=== PATIENT | female | born 1990 | race Hispanic/Latino ===

== ENCOUNTER 2018-01-24 13:40 | Emergency (ER) | payer OTHER ==
[2018-01-24 13:40] VITALS: BMI 28.3
[2018-01-24 13:53] VITALS: TEMP 98.1; O2SAT 100
[2018-01-24] MEDS ORDERED: Sodium Chloride 0.9% 1,000 ML IV ONE (14:40)
--- NOTE | 2018-01-24 14:40 | ED PDOC ---
HPI: Female Pain Time Seen by Provider: 01/24/18 14:04 Chief Complaint (Nursing): Female Genitourinary History Per: Patient History/Exam Limitations: no limitations Onset/Duration Of Symptoms: Days (1), Gradual Current Symptoms Are (Timing): Still Present Severity: Mild Quality Of Discomfort: Dull, Aching Associated Symptoms: Back Pain. denies: Fever, Chills, Nausea, Vomiting, Chest Pain, Constipation, Urinary Symptoms Alleviating Factors: None Additional History Per: Patient Additional Complaint(s): Patient complaints of abdominal pain and back pain associated with vaginal bleeding. 4 michael pads used today. Abnormal Vaginal Bleeding: Yes Past Medical History Reviewed: Historical Data, Nursing Documentation, Vital Signs Vital Signs: Last Vital Signs Temp 98.1 F 01/24/18 13:49 Pulse 85 01/24/18 13:49 Resp 16 01/24/18 13:49 BP 97/67 L 01/24/18 13:49 Pulse Ox 100 01/24/18 13:49 - Medical History PMH: Denies: Chronic Kidney Disease - Family History Family History: States: Unknown Family Hx - Living Arrangements Living Arrangements: With Family - Social History Current smoker - smoking cessation education provided: No - Home Medications Home Medications: Ambulatory Orders Medication Instructions Recorded Ibuprofen [Motrin Tab] 600 mg PO Q6 PRN #40 tab 10/22/16 Multimineral/Multivitamin 1 tab PO DAILY tab 10/22/16 [Therapeutic-M Tab] Multivit/Folic Acid/I 1 tab PO DAILY #30 tab 01/24/18 [ Plus] - Allergies Allergies/Adverse Reactions: Allergies Allergy/AdvReac Type Severity Reaction Status Date / Time peanut Allergy RASH Verified 10/19/16 23:27 Penicillins Allergy RASH Verified 10/19/16 23:27 Review of Systems ROS Statement: Except As Marked, All Systems Reviewed And Found Negative Constitutional: Negative for: Fever, Chills Cardiovascular: Negative for: Chest Pain, Palpitations Respiratory: Negative for: Cough, Shortness of Breath Gastrointestinal: Negative for: Nausea, Vomiting, Abdominal Pain, Diarrhea Genitourinary Female: Positive for: Vaginal Bleeding, Pelvic Pain. Negative for : Dysuria, Frequency, Vaginal Discharge Neurological: Negative for: Weakness, Numbness Physical Exam - Reviewed Nursing Documentation Reviewed: Yes Vital Signs Reviewed: Yes - Physical Exam Appears: Positive for: Uncomfortable Head Exam: Positive for: ATRAUMATIC, NORMAL INSPECTION, NORMOCEPHALIC Eye Exam: Positive for: Normal appearance Neck: Positive for: Normal, Painless ROM, Supple Cardiovascular/Chest: Positive for: Regular Rate, Rhythm, Chest Non Tender. Negative for: Edema, Gallop Respiratory: Positive for: Normal Breath Sounds. Negative for: Decreased Breath Sounds, Accessory Muscle Use, Crackles, Rales, Rhonchi, Stridor, Wheezing Gastrointestinal/Abdominal: Positive for: Normal Exam, Bowel Sounds, Soft. Negative for: Tenderness Pelvic Exam: Positive for: External Exam Normal, Bimanual Exam Normal, No Cerv. Motion Tender, No Masses, Blood (min). Negative for: Tender Adnexa, Tender Uterus Back: Positive for: Normal Inspection. Negative for: L CVA Tenderness, R CVA Tenderness, Vertebral Tenderness Extremity: Positive for: Normal ROM. Negative for: Tenderness, Pedal Edema Neurologic/Psych: Positive for: Alert, grinding machine operator automatic II-XII, Oriented, Mood/Affect (calm) . Negative for: Motor/Sensory Deficits - Laboratory Results Result Diagrams: 01/24/18 15:01 01/24/18 15:01 - ECG O2 Sat by Pulse Oximetry: 100 Pulse Ox Interpretation: Normal - Progress ED Course And Treament: us reveals 8week old fetus. advise close f/u with od. pt agree's with plan and leaves ambulatory and in good spirits. Re-evaluation Time: 16:06 Condition: Improved Disposition - Clinical Impression Clinical Impression: Miscarriage, threatened, early - Patient ED Disposition Is Patient to be Admitted: No Counseled Patient/Family Regarding: Studies Performed, Diagnosis, Need For Followup, Rx Given - Disposition [facility] (2 to 3 days) Disposition: Routine/Home Disposition Time: 15:30 Condition: GOOD Prescriptions: Multivit/Folic Acid/I [ Plus] 1 tab PO DAILY #30 tab Instructions: Threatened Miscarriage (DC) Forms: [facility] [employer] (Grenadian) Print Language: SLOVAK
[2018-01-24 15:06] LABS: BASO # 0.1 K/uL (0.0-0.2); EOS # 0.1 K/uL (0.0-0.7); HEMOGLOBIN 14.2 g/dL (12.0-16.0); LYMPH # 3.2 K/uL (1.0-4.3); LYMPH % 32.7 % (20.0-40.0); MEAN CELL VOLUME 92.2 fl (81.0-99.0); MEAN CORPUSCULAR HEMOGLOBIN 31.8 pg (27.0-31.0); MEAN CORPUSCULAR HGB CONC 34.5 g/dL (33.0-37.0); MEAN PLATELET VOLUME 10.8 fl (7.2-11.7); MONO # 0.7 K/uL (0.0-0.8); MONO % 7.1 % (0.0-10.0); NEUT # 5.7 K/uL (1.8-7.0); NEUT % 58.2 % (50.0-75.0); NRBC % 0.3 % (0.0-0.0); RBC 4.45 Mil/uL (3.80-5.20); RED CELL DISTRIBUTION WIDTH 12.9 % (11.5-14.5); WHITE BLOOD COUNT 9.8 K/uL (4.8-10.8)
[2018-01-24 15:15] LABS: ALB/GLOB RATIO 1.2 (1.0-2.1); ALBUMIN 3.9 g/dL (3.5-5.0); ALT/SGPT 84 U/L (9-52); AMYLASE 98 U/L (30-110); AST/SGOT 41 U/L (14-36); BLOOD UREA NITROGEN 8 mg/dl (7-17); CALCIUM 9.3 mg/dL (8.4-10.2); GFR AFRICAN-AMERICAN > 60; GFR NON-AFRICAN AMERICAN > 60; LIPASE 121 U/L (23-300)
[2018-01-24 15:15] LABS: SQUAMOUS EPITHIAL 5 /hpf (0-5); URINE AMORPHOUS SEDIMENT OCC /ul (<OCC); URINE BACTERIA RARE (<OCC); URINE BILIRUBIN NEGATIVE (NEGATIVE); URINE BLOOD SMALL (NEGATIVE); URINE CLARITY TURBID (Clear); URINE COLOR YELLOW (YELLOW); URINE GLUCOSE (UA) NEG (Normal); URINE LEUKOCYTE ESTERASE TRACE Leu/uL (Negative); URINE PROTEIN NEGATIVE (NEGATIVE); URINE UROBILINOGEN 0.2-1.0 mg/dL (0.2-1.0)
--- NOTE | 2018-01-24 15:33 | US ---
PROCEDURE: OB Pelvic Ultrasound HISTORY: pelvic pain r/o ectopic LMP: 11/23/2017 COMPARISON: No relevant prior imaging. FINDINGS: UTERUS: Gestational sac: Single intrauterine gestation. Measures 2.9 cm compatible with estimated gestational age of 7 weeks, 6 days. Yolk sac: Measures 0.6 cm. pole: [place]-rump length measures 1.6 cm compatible with estimated gestational age of 8 weeks, 0 days. Heart rate: 163 bpm. age (Ultrasound estimated): 8 weeks, 0 days [place]-gestational hemorrhage: Small subchorionic hemorrhage measuring 1.7 x 0.6 x 0.9 cm. Date of delivery (Ultrasound estimated) : 09/05/2018 Uterus measures 9.7 x 6.0 x 5.4 cm. Anteverted. Normal in size and appearance. CERVIX: Measures 4.6 cm. Long and closed. No cervical abnormality seen. RIGHT OVARY: Measures 3.5 x 3.2 x 2.4 cm. Cyst measuring 2.4 x 1.9 x 1.9 cm. Normal flow. LEFT OVARY: Measures 2.5 x 1.4 x 2.1 cm. No solid mass. Normal flow. FREE FLUID: None. OTHER FINDINGS: None. IMPRESSION: Single viable intrauterine gestation with average ultrasound age of 8 weeks, 0 days. heart rate 163 beats per minute. Cervix long and closed. Small subchorionic hemorrhage.
[2018-01-24 16:51] VITALS: BP 110/70; PULSE 79; RESP 18
== END 2018-01-24 16:41 | disposition home or self-care (01) ==
LOC: H.ER 13:40
DX: O20.0 Threatened abortion (principal); Z88.0 Allergy status to penicillin

== ENCOUNTER 2018-09-22 21:31 | Emergency (ER) | payer SELFPAY ==
[2018-09-22 21:32] VITALS: BMI 28.3
[2018-09-22 22:04] VITALS: TEMP 98.2
--- NOTE | 2018-09-22 23:08 | ED PDOC ---
HPI: Headache Time Seen by Provider: 09/22/18 22:19 Chief Complaint (Nursing): Weakness/Neurological Deficit Chief Complaint (Provider): WALKER and Right sided facial numbness History Per: Patient History/Exam Limitations: no limitations Onset/Duration Of Symptoms: Days Quality: Sharp Preceeding Symptoms: denies: Visual Disturbances Associated Symptoms: Nausea. denies: Photophobia, Vomiting Additional Complaint(s): 28 y/o F with hx of HL, Migraines, [place]'s Palsy age 18 who presents with Right sided WALKER x 3 days and facial numbness that began today. Denies dizziness, visual disturbance, gait disturbance, N/V, weakness. She states that her [place]'s Palsy began with Right sided facial numbness and began with a stressor. She has been under a lot of stress as her was arrested by immigration recently. She has not taken anything for the WALKER. The WALKER has been intermittent for the past 3 days. Past Medical History Reviewed: Historical Data, Nursing Documentation, Vital Signs Vital Signs: Last Vital Signs Temp 98.2 F 09/22/18 22:03 Pulse 75 09/22/18 22:03 Resp 16 09/22/18 22:03 BP 129/87 09/22/18 22:03 Pulse Ox 98 09/22/18 22:03 - Medical History PMH: Hyperlipidemia, Migraine Denies: Chronic Kidney Disease Other PMH: fatty liver - Family History Family History: States: Unknown Family Hx - Social History Current smoker - smoking cessation education provided: No Ex-Smoker (has not smoked in the last 12 months): No Alcohol: None Drugs: Denies - Home Medications Home Medications: Ambulatory Orders Medication Instructions Recorded Ibuprofen [Motrin Tab] 600 mg PO Q6 PRN #40 tab 10/22/16 Multimineral/Multivitamin 1 tab PO DAILY tab 10/22/16 [Therapeutic-M Tab] Multivit/Folic Acid/I 1 tab PO DAILY #30 tab 01/24/18 [ Plus] Cyclobenzaprine [Cyclobenzaprine 10 mg PO Q8 PRN 5 Days tab 09/23/18 HCl] Ibuprofen [Motrin Tab] 600 mg PO Q6 PRN 5 Days tab 09/23/18 - Allergies Allergies/Adverse Reactions: Allergies Allergy/AdvReac Type Severity Reaction Status Date / Time peanut Allergy RASH Verified 10/19/16 23:27 Penicillins Allergy RASH Verified 10/19/16 23:27 Review of Systems ROS Statement: Except As Marked, All Systems Reviewed And Found Negative Constitutional: Negative for: Fever, Chills Cardiovascular: Negative for: Chest Pain Respiratory: Negative for: Cough, Shortness of Breath Gastrointestinal: Negative for: Nausea, Vomiting Musculoskeletal: Positive for: Neck Pain (Right neck pain) Neurological: Positive for: Numbness (Right sided facial numbness), Headache (Right sided WALKER). Negative for: Incoordination, Change in Speech, Confusion, Altered Mental Status, Dizziness Physical Exam - Reviewed Nursing Documentation Reviewed: Yes Vital Signs Reviewed: Yes - Physical Exam Appears: Positive for: Uncomfortable Head Exam: Positive for: ATRAUMATIC Skin: Positive for: Normal Color Eye Exam: Positive for: EOMI, PERRL ENT: Positive for: Normal ENT Inspection Neck: Positive for: Decreased ROM (with RIght lateral rotation of neck) Cardiovascular/Chest: Positive for: Regular Rate, Rhythm Respiratory: Positive for: Normal Breath Sounds Extremity: Positive for: Normal ROM Neurologic/Psych: Positive for: Alert, Oriented, Motor/Sensory Deficits (decreased sensation on Right cheek), Other (normal proprioception, able to puff cheeks, smile symmetrical). Negative for: Facial Droop - Laboratory Results Result Diagrams: 09/22/18 23:25 09/22/18 23:25 - ECG O2 Sat by Pulse Oximetry: 98 Medical Decision Making Medical Decision Making: CBC, CMP Reglan 10mg IV Toradol 30mg IV Flexeril 10mg PO x 1 Urine preg Urine preg: neg LFTs elevated. Re-evaluated prior to d/c: patient states that her neck pain and WALKER are significantly improved but that she continues to have facial numbness. Given improvement in WALKER and lack of neurological deficits, further imaging was deferred. Patient given return instructions in case symptoms persist or worsen and was in agreement with the plan. Disposition - Clinical Impression Clinical Impression: Tension headache - Patient ED Disposition Is Patient to be Admitted: No Counseled Patient/Family Regarding: Studies Performed, Diagnosis, Need For Followup, Rx Given - Disposition Disposition: Routine/Home Disposition Time: 02:48 Condition: STABLE Additional Instructions: Return to ER if you develop worsening Headache, visual changes, nausea/vomiting, weakness on one side of your body. F/u with your primary care doctor at [facility] or neurologist for management of headache/migraine. Prescriptions: Cyclobenzaprine [Cyclobenzaprine HCl] 10 mg PO Q8 PRN 5 Days tab PRN Reason: Pain, Moderate (4-7) Ibuprofen [Motrin Tab] 600 mg PO Q6 PRN 5 Days tab PRN Reason: Headache Instructions: Tension Headache (DC) Forms: [facility] (Chadian) Print Language: SWEDISH
[2018-09-22] MEDS ORDERED: Sodium Chloride 0.9% 1,000 ML IV SCH (23:15)
[2018-09-22 23:35] LABS: BASO # 0.1 K/uL (0.0-0.2); BASO % 1.5 % (0.0-2.0); EOS # 0.1 K/uL (0.0-0.7); EOS % 0.8 % (0.0-4.0); HEMOGLOBIN 14.2 g/dL (12.0-16.0); LYMPH # 5.1 K/uL (1.0-4.3); LYMPH % 49.7 % (20.0-40.0); MEAN CELL VOLUME 92.2 fl (81.0-99.0); MEAN CORPUSCULAR HEMOGLOBIN 30.7 pg (27.0-31.0); MEAN CORPUSCULAR HGB CONC 33.3 g/dL (33.0-37.0); MEAN PLATELET VOLUME 11.7 fl (7.2-11.7); MONO # 0.6 K/uL (0.0-0.8); MONO % 5.6 % (0.0-10.0); NEUT # 4.4 K/uL (1.8-7.0); NEUT % 42.4 % (50.0-75.0); NRBC % 0.1 % (0.0-0.0); RBC 4.63 Mil/uL (3.80-5.20); RED CELL DISTRIBUTION WIDTH 12.5 % (11.5-14.5); WHITE BLOOD COUNT 10.3 K/uL (4.8-10.8)
[2018-09-22 23:43] LABS: ALB/GLOB RATIO 1.3 (1.0-2.1); ALBUMIN 4.4 g/dL (3.5-5.0); ALT/SGPT 420 U/L (9-52); AST/SGOT 197 U/L (14-36); BLOOD UREA NITROGEN 14 mg/dl (7-17); CALCIUM 9.2 mg/dL (8.4-10.2); GFR NON-AFRICAN AMERICAN > 60
[2018-09-22] MEDS ORDERED: Sodium Chloride 0.9% 1,000 ML IV ONE ×2 (23:44→23:53)
[2018-09-23 02:44] VITALS: BP 115/80; PULSE 62; RESP 18
[2018-09-23 05:49] VITALS: O2SAT 98
== END 2018-09-23 02:48 | disposition home or self-care (01) ==
LOC: H.ER 21:31
DX: G44.209 Tension-type headache, unspecified, not intractable (principal); Z87.891 Personal history of nicotine dependence; Z88.0 Allergy status to penicillin
CPT/HCPCS: 80053; 81025; 85025; 96361; 96374; 96375; 99285; J1885; J2765; J7040